=== PATIENT | female | born 2005 | race Two or more races ===

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

== ENCOUNTER 2024-04-08 18:27 | Emergency (ER) | payer SELFPAY ==
[~2024-04-08] VITALS: Ht 160 cm; Wt 75.1 kg
[2024-04-08 19:18] VITALS: PULSE 83; RESP 18; TEMP 98.5
[2024-04-08] MEDS ORDERED: IBUPROFEN 600 MG TAB ONE (23:19)
[2024-04-08] MEDS ORDERED: LEVOFLOXACIN500 MG PO (23:21)
[2024-04-08] MEDS ORDERED: ULTRAM 50MG50 MG PO (23:22)
[2024-04-08] MEDS: LEVOFLOXACIN 500 MG TAB PO ONE (23:31)
[2024-04-08] MEDS: IBUPROFEN 600 MG TAB PO STA (23:31)
[2024-04-09 00:14] VITALS: BP 125/80; PULSE 87; RESP 16; TEMP 98.2; O2SAT 97
== END 2024-04-09 00:01 | disposition home or self-care (01) ==
LOC: FSED 18:32
DX: N75.1 Abscess of Bartholin's gland (principal); Z87.19 Personal history of other diseases of the digestive system
CPT/HCPCS: 99283